=== PATIENT | female | born 1995 | race Caucasian/White ===

== ENCOUNTER 2017-01-30 20:33 | Inpatient (IN) | payer MEDICAID, OTHER ==
[~2017-01-30] VITALS: Ht 152.4 cm; Wt 55.5 kg
[~2017-01-30 20:33] MED LIST: ACET325 PO; CELE10TA9 PO; CEPH500T PO
[2017-01-30 20:34] VITALS: BP 120/70; PULSE 100; RESP 20; TEMP 98; O2SAT 98
[2017-01-30 20:56] VITALS: BP 118/76; PULSE 80; RESP 14; O2SAT 99
[2017-01-30 21:39] LABS: AUTOMATED NEUTROPHIL # 3.2 TH/MM3 (1.8-7.7); BASOPHIL % 0.7 % (0.0-2.0); EOSINOPHIL # 0.2 TH/MM3 (0-0.4); EOSINOPHIL % 2.1 % (0.0-4.0); HEMATOCRIT 38.1 % (35.0-46.0); HEMO FLAGS DIFF FINAL; LYMPH % 47.6 % (9.0-44.0); LYMPHOCYTE # 3.5 TH/MM3 (1.0-4.8); MEAN CELL VOLUME 81.5 FL (80.0-100.0); MEAN CORPUSCULAR HEMOGLOBIN 26.9 PG (27.0-34.0); MEAN CORPUSCULAR HGB CONC 33.1 % (32.0-36.0); NEUT % 43.6 % (16.0-70.0); PLATELET COUNT 292 TH/MM3 (150-450); RED BLOOD COUNT 4.68 MIL/MM3 (4.00-5.30); WHITE BLOOD COUNT 7.4 TH/MM3 (4.0-11.0)
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
[2017-01-30 22:10] LABS: ANION GAP 9 MEQ/L (5-15); BICARBONATE 25.5 MEQ/L (21.0-32.0); BLOOD UREA NITROGEN 19 MG/DL (7-18); CHLORIDE 107 MEQ/L (98-107); GLOMERULAR FILTRATION RATE 84 ML/MIN (>89); POTASSIUM 3.6 MEQ/L (3.5-5.1); SODIUM (NA) 141 MEQ/L (136-145)
[2017-01-30 22:11] LABS: AMPHETAMINE, URINE NEG (NEG); BARBITURATES, URINE NEG (NEG); COCAINE, URINE NEG (NEG)
[2017-01-30 22:13] LABS: ACETAMINOPHEN LESS THAN 2.0 MCG/ML (10.0-30.0); ALKALINE PHOSPHATASE 52 U/L (45-117); ALT (GPT) 21 U/L (9-42); AST (GOT) 17 U/L (16-38); TOTAL BILIRUBIN ADULT 0.3 MG/DL (0.2-1.0)
[2017-01-31 00:51] VITALS: BP 120/74; PULSE 76; RESP 12; O2SAT 98
[2017-01-31] MEDS ORDERED: ACETAMINOPHEN 325 MG TAB PO PRN (01:15)
[2017-01-31] MEDS ORDERED: LORazepam 2 MG/ML VIAL IM PRN (01:15)
[2017-01-31] MEDS ORDERED: BENZTROPINE MESYLATE 2 MG/2 ML VIAL IM PRN (01:15)
[2017-01-31] MEDS ORDERED: BENZTROPINE MESYLATE 1 MG TAB PO PRN (01:15)
[2017-01-31] MEDS ORDERED: LORazepam 1 MG TAB PO PRN (01:15)
[2017-01-31] MEDS ORDERED: ALUMINUM/MAGNESIUM/SIMETH 30 ML CUP PO PRN (01:15)
[2017-01-31] MEDS ORDERED: MAGNESIUM HYDROXIDE SUSP 30 ML CUP PO PRN (01:15)
[2017-01-31 02:15] VITALS: BP 121/57; PULSE 89; RESP 16; TEMP 97.9; O2SAT 100
[2017-01-31] MEDS: REMOVE OLD PATCH T-DERMAL SCH (09:00)
[2017-01-31] MEDS: NICOTINE 21 MG/24 HR PATCH T-DERMAL SCH (09:00)
[2017-01-31] MEDS ORDERED: PILL SPLITTER OTHER PRN (14:15)
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
[2017-01-31 18:01] VITALS: BP 115/59; PULSE 100; RESP 16; TEMP 98.2; O2SAT 100
[2017-01-31] MEDS: diphenhydrAMINE HCL 50 MG CAP PO PRN (21:46)
[2017-02-01 06:33] VITALS: BP 106/53; PULSE 97; RESP 15; TEMP 98.9; O2SAT 100
[2017-02-01] MEDS: NICOTINE 21 MG/24 HR PATCH T-DERMAL SCH (09:00)
[2017-02-01] MEDS: REMOVE OLD PATCH T-DERMAL SCH (09:00)
[2017-02-01] MEDS: CITALOPRAM HYDROBROMIDE 20 MG TAB PO SCH (09:11)
[2017-02-01 09:19] LABS: ANION GAP 8 MEQ/L (5-15); BICARBONATE 25.8 MEQ/L (21.0-32.0); BLOOD UREA NITROGEN 13 MG/DL (7-18); CHLORIDE 105 MEQ/L (98-107); GLOMERULAR FILTRATION RATE 84 ML/MIN (>89); HDL CHOLESTEROL 70.4 MG/DL (40.0-60.0); LDL CHOLESTEROL 105 MG/DL (0-99); POTASSIUM 4.1 MEQ/L (3.5-5.1); SODIUM (NA) 139 MEQ/L (136-145)
[2017-02-01 09:49] LABS: HEMOGLOBIN A1a 1.2 %; HEMOGLOBIN A1b 0.7 %; HEMOGLOBIN Ao 86.1 %; HEMOGLOBIN LA1C 1.8 %; HEMOGLOBIN P3 3.5 %
--- NOTE | 2017-02-01 11:13 | HHI.PYPN ---
Subjective Remarks Patient was seen and case discussed with nursing. Patient is pleasant and cooperative with exam. She is eating well, sleeping well. Seen interacting with others. Affect is shy, anxious. Denies suicidal ideation intent or plan. Objective Alert: Yes [place]: Person, Place, Date, Situation Mood: Anxious, Depressed Affect: Restricted Memory Intact: Immediate (intact) Hallucinations: Auditory (denies) Delusions: No Delusion Type: Other Suicidal: Ideation (denies) Homicidal: Ideation (denies) Insight/Judgment Fair Labs Test 02/01/17 08:05 Sodium Level 139 MEQ/L Potassium Level 4.1 MEQ/L Chloride Level 105 MEQ/L Carbon Dioxide Level 25.8 MEQ/L Anion Gap 8 MEQ/L Blood Urea Nitrogen 13 MG/DL Creatinine 0.87 MG/DL Estimat Glomerular Filtration 84 ML/MIN Rate Random Glucose 84 MG/DL Hemoglobin A1c 5.2 % Calcium Level 8.7 MG/DL Triglycerides Level 54 MG/DL Cholesterol Level 186 MG/DL LDL Cholesterol 105 MG/DL HDL Cholesterol 70.4 MG/DL Cholesterol/HDL Ratio 2.64 RATIO Thyroid Stimulating Hormone 2.930 uIU/ML 3rd Gen Vitals/IOs Vital Signs Date Time Temp Pulse Resp B/P Pulse Ox O2 Delivery O2 Flow Rate FiO2 02/01/17 06:33 98.9 97 15 106/53 100 01/31/17 00:51 Room Air Assessment & Plan Problem List: (1) Major depressive disorder ICD Code: F32.9 Assessment & Plan Continue current treatment plan Justification for Cont. Inpt. Patient will decompensate in a less restrictive setting Request HC Surrog/Guard Advoc?: No Problem Qualifiers (1) Major depressive disorder: Qualified Code: F33.2 - Severe episode of recurrent major depressive disorder, without psychotic features Raphael Stubbs DO February 01, 2017 11:13
[2017-02-01 20:00] VITALS: BP 108/60; PULSE 77; RESP 16; TEMP 97.9; O2SAT 100
[2017-02-01] MEDS: diphenhydrAMINE HCL 50 MG CAP PO PRN (21:37)
[2017-02-01] MEDS: ALPRAZolam 0.25 MG TAB PO PRN (21:55)
[2017-02-02 06:13] VITALS: BP 96/55; PULSE 75; RESP 16; TEMP 97.6
[2017-02-02] MEDS: REMOVE OLD PATCH T-DERMAL SCH (09:00)
[2017-02-02] MEDS: NICOTINE 21 MG/24 HR PATCH T-DERMAL SCH (09:00)
[2017-02-02] MEDS: CITALOPRAM HYDROBROMIDE 20 MG TAB PO SCH (09:20)
--- NOTE | 2017-02-02 16:45 | HHI.PYPN ---
Subjective Remarks Patient remains depressed. She is tolerating the Celexa but wants it changed to nighttime because it makes her tired. Review of Systems Except as stated in HPI: all other systems reviewed are Neg Objective Alert: Yes [place]: Person, Place, Date, Situation Mood: Anxious, Depressed Affect: Restricted Memory Intact: Immediate (intact) Hallucinations: Auditory (denies) Delusions: No Delusion Type: Other Suicidal: Ideation (denies) Homicidal: Ideation (denies) Insight/Judgment Impaired Vitals/IOs Vital Signs Date Time Temp Pulse Resp B/P Pulse Ox O2 Delivery O2 Flow Rate FiO2 02/02/17 06:13 97.6 75 16 96/55 02/01/17 20:00 100 01/31/17 00:51 Room Air Assessment & Plan Problem List: (1) Major depressive disorder ICD Code: F32.9 Assessment & Plan Estimated LOS: 3 days continue Celexa for now. Justification for Cont. Inpt. Suicidal ideation. Request HC Surrog/Guard Advoc?: No Problem Qualifiers (1) Major depressive disorder: Qualified Code: F33.2 - Severe episode of recurrent major depressive disorder, without psychotic features Mikael Hutchins MD February 02, 2017 16:45
[2017-02-02 18:00] VITALS: BP 116/60; PULSE 88; RESP 18; TEMP 97.8; O2SAT 99
[2017-02-02] MEDS: ALPRAZolam 0.25 MG TAB PO PRN (21:44)
[2017-02-02] MEDS: diphenhydrAMINE HCL 50 MG CAP PO PRN (21:44)
[2017-02-03 04:40] VITALS: PULSE 77; RESP 18; TEMP 98.3; O2SAT 98
[2017-02-03] MEDS: REMOVE OLD PATCH T-DERMAL SCH (09:00)
[2017-02-03] MEDS: NICOTINE 21 MG/24 HR PATCH T-DERMAL SCH (09:00)
[2017-02-03] MEDS: ALPRAZolam 0.25 MG TAB PO PRN (17:22)
[2017-02-03 18:05] VITALS: BP 102/58; PULSE 82; RESP 18; TEMP 97.6
[2017-02-03] MEDS ORDERED: CITALOPRAM HYDROBROMIDE 20 MG TAB PO SCH (21:00)
[2017-02-03] MEDS: diphenhydrAMINE HCL 50 MG CAP PO PRN (22:46)
[2017-02-04 06:02] VITALS: BP 101/55; PULSE 85; RESP 15; TEMP 98
[2017-02-04] MEDS: NICOTINE 21 MG/24 HR PATCH T-DERMAL SCH (09:00)
[2017-02-04] MEDS: REMOVE OLD PATCH T-DERMAL SCH (09:00)
[2017-02-04 17:33] VITALS: BP 116/66; PULSE 86; RESP 15; TEMP 98.4; O2SAT 98
[2017-02-04] MEDS: CITALOPRAM HYDROBROMIDE 20 MG TAB PO SCH (21:02)
[2017-02-04] MEDS: diphenhydrAMINE HCL 50 MG CAP PO PRN (21:02)
[2017-02-05 05:35] VITALS: BP 104/65; PULSE 80; RESP 18; TEMP 98.4; O2SAT 99
[2017-02-05] MEDS: NICOTINE 21 MG/24 HR PATCH T-DERMAL SCH (09:00)
[2017-02-05] MEDS: REMOVE OLD PATCH T-DERMAL SCH (09:00)
[2017-02-05 20:11] VITALS: BP 112/72; PULSE 97; RESP 18; TEMP 98.7; O2SAT 97
[2017-02-05] MEDS: diphenhydrAMINE HCL 50 MG CAP PO PRN (21:20)
[2017-02-05] MEDS: CITALOPRAM HYDROBROMIDE 20 MG TAB PO SCH (21:20)
[2017-02-06 06:09] VITALS: BP 101/54; PULSE 76; RESP 18; TEMP 98.9; O2SAT 100
[2017-02-06] MEDS: NICOTINE 21 MG/24 HR PATCH T-DERMAL SCH (09:00)
[2017-02-06] MEDS: REMOVE OLD PATCH T-DERMAL SCH (09:00)
[2017-02-06] MEDS ORDERED: CELE20TA PO (14:11)
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
--- NOTE | 2017-02-12 12:29 | HHI.PYPN ---
Subjective Remarks Patient's mood is improved. She is tolerating antidepressant medication well. She is considering discharge tomorrow and will plan to return to her boyfriend, with whom she lives. Review of Systems Except as stated in HPI: all other systems reviewed are Neg Objective Alert: Yes [place]: Person, Place, Date, Situation Mood: Anxious, Depressed Affect: Restricted Memory Intact: Immediate (intact) Hallucinations: Auditory (denies) Delusions: No Delusion Type: Other Suicidal: Ideation (denies) Homicidal: Ideation (denies) Insight/Judgment Improved Assessment & Plan Problem List: (1) Major depressive disorder ICD Code: F32.9 Assessment & Plan Estimated LOS: 1 days. Patient demonstrates stability of mood, she will be discharged tomorrow. Justification for Cont. Inpt. Requires time to evaluate stability of mood. Request HC Surrog/Guard Advoc?: No Problem Qualifiers (1) Major depressive disorder: Qualified Code: F33.2 - Severe episode of recurrent major depressive disorder, without psychotic features Mikael Hutchins MD February 12, 2017 12:28
--- NOTE | 2017-02-12 12:32 | HHI.PYPN ---
Subjective Remarks This is the progress note for February 04, 2017. Patient is tolerating antidepressant. Remains depressed, tearful, with suicidal thinking. Able to plan overdose without hesitation. Review of Systems Except as stated in HPI: all other systems reviewed are Neg Objective Alert: Yes [place]: Person, Place, Date, Situation Mood: Anxious, Depressed Affect: Restricted Memory Intact: Immediate (intact) Hallucinations: Auditory (denies) Delusions: No Delusion Type: Other Suicidal: Ideation (denies) Homicidal: Ideation (denies) Insight/Judgment Remains impaired. Assessment & Plan Problem List: (1) Major depressive disorder ICD Code: F32.9 Assessment & Plan Estimated LOS: 3 days remains depressed and suicidal. Tolerates antidepressant medication but needs more time to respond. Justification for Cont. Inpt. Likely to harm self at lower level of care. Request HC Surrog/Guard Advoc?: No Problem Qualifiers (1) Major depressive disorder: Qualified Code: F33.2 - Severe episode of recurrent major depressive disorder, without psychotic features Mikael Hutchins MD February 12, 2017 12:32
--- NOTE | 2017-02-12 12:38 | HHI.PYPN ---
Subjective Remarks This is the progress note for February 03, 2017. Markedly depressed mood. Describes social withdrawal, anhedonia and anxiety. Also reports diminished energy and frequent tearfulness with suicidal thinking. Antidepressant therapy has not been effective thus far. Review of Systems Except as stated in HPI: all other systems reviewed are Neg Objective Alert: Yes [place]: Person, Place, Date, Situation Mood: Anxious, Depressed Affect: Restricted Memory Intact: Immediate (intact) Hallucinations: Auditory (denies) Delusions: No Delusion Type: Other Suicidal: Ideation (denies) Homicidal: Ideation (denies) Insight/Judgment Impaired Assessment & Plan Problem List: (1) Major depressive disorder ICD Code: F32.9 Assessment & Plan Estimated LOS: 5 days discussed change of antidepressant medication to Wellbutrin XL, 150 mg to 300 mg per day. Justification for Cont. Inpt. Continued suicidal ideation with plan to overdose. Antidepressant medication ineffective thus far. Request HC Surrog/Guard Advoc?: No Problem Qualifiers (1) Major depressive disorder: Qualified Code: F33.2 - Severe episode of recurrent major depressive disorder, without psychotic features Mikael Hutchins MD February 12, 2017 12:38
== END 2017-02-06 17:30 | disposition home or self-care (01) | DRG 885 ==
LOC: NEPD 20:33 → NEDA 01-31 01:23 → H260 01-31 02:15
PROVIDERS: ADMIT Psychiatry & Neurology Psychiatry; ATTEND Psychiatry & Neurology Psychiatry
DX: F33.2 Major depressive disorder, recurrent severe without psychotic features (principal); R45.851 Suicidal ideations; F41.9 Anxiety disorder, unspecified; G47.00 Insomnia, unspecified; Z91.5 Personal history of self-harm; Z81.8 Family history of other mental and behavioral disorders; Z62.810 Personal history of physical and sexual abuse in childhood
CPT/HCPCS: 80048; 80053; 80061; 80307; 83036; 84443; 84703; 85025; 99284; Q0163

== ENCOUNTER 2017-03-10 19:30 | Emergency (ER) | payer MEDICAID ==
[~2017-03-10] VITALS: Ht 165.1 cm; Wt 55.0 kg
[~2017-03-10 19:30] MED LIST changes: -ACET325 PO; -CELE10TA9 PO; +CELE20TA PO; -CEPH500T PO
[2017-03-10 19:32] VITALS: BP 132/68; PULSE 132; RESP 16; TEMP 99.7; O2SAT 99
[2017-03-10] MEDS ORDERED: SODIUM CHLOR 0.9% 1000 ML INJ 1,000 ML IV ONE (22:07)
--- NOTE | 2017-03-10 22:12 | PD ---
HPI Chief Complaint: Cold / Flu Symptoms Time Seen by Provider: 22:08 Travel History International Travel<30 days: No Contact w/Intl Traveler<30days: No Traveled to known affect area: No History of Present Illness HPI Patient is a 21-year-old female presenting with 1 week of right flank pain, headache, nausea, dysuria and frequency. She reports having cold sweats and then feeling as if she is hot. She has no documented fevers at home. She reports the pain is a 9 out of 10, and the pain is worse in the right flank when she lays on her left side. Patient reports a history of urinary tract infections. She last took Excedrin at 7 PM this evening for headache. The headache is frontal in nature and aching and throbbing per her report. Her past medical history significant for anxiety and depression. She has no known drug allergies. PFSH Past Medical History Weight (Kg): 3 Anxiety: Yes Depression: Yes Cancer: No Cardiovascular Problems: No Diabetes: No Diminished Hearing: No Endocrine: No Genitourinary: No Headaches: Yes (at times from too much sun) Immune Disorder: No Musculoskeletal: No Neurologic: No Psychiatric: Yes (Suicidal Ideations) Reproductive: No Respiratory: No Immunizations Current: Yes Seizures: No Tetanus Vaccination: Unknown Influenza Vaccination: No ?: Not Past Surgical History Oral Surgery: Yes (wisdom teeth removed) Social History Alcohol Use: Yes (rare) Tobacco Use: No Substance Use: No Allergies-Medications (Allergen,Severity, Reaction): Coded Allergies: No Known Allergies (Unverified , 01/30/17) Reported Meds & Prescriptions Reported Meds & Active Scripts Active Ibuprofen 800 Mg Tab 800 Mg PO Q6HR PRN Phenergan (Promethazine HCl) 25 Mg Tablet 25 Mg PO Q8HR PRN Ciprofloxacin (Ciprofloxacin HCl) 500 Mg Tab 500 Mg PO BID 7 Days Celexa (Citalopram Hydrobromide) 20 Mg Tab 20 Mg PO HS 15 Days Review of Systems Except as stated in HPI: all other systems reviewed are Neg General / Constitutional: Positive: Chills HENT: Positive: Headaches Cardiovascular: Positive: Tachycardia, No: Chest Pain or Discomfort Respiratory: No: Cough, Shortness of Breath Gastrointestinal: Positive: Nausea, No: Vomiting, Diarrhea Genitourinary: Positive: Urgency, Frequency, Dysuria, Flank Pain Musculoskeletal: No: Myalgias Neurologic: No: Weakness, Dizziness, Syncope Physical Exam Narrative GENERAL: Well-developed, well-nourished, alert female. Resting comfortably in no acute distress. SKIN: Focused skin assessment warm/dry. HEAD: Atraumatic. Normocephalic. EYES: Pupils equal and round. No scleral icterus. No injection or drainage. ENT: No nasal bleeding or discharge. Mucous membranes pink and moist. NECK: Trachea midline. No JVD. CARDIOVASCULAR: Tachycardic. No murmur appreciated. RESPIRATORY: No accessory muscle use. Clear to auscultation. Breath sounds equal bilaterally. GASTROINTESTINAL: Abdomen soft, non-tender, nondistended. Hepatic and splenic margins not palpable. + Bowel sounds. MUSCULOSKELETAL: No obvious deformities. No clubbing. No cyanosis. No edema. Positive CVAT on the right NEUROLOGICAL: Awake and alert. No obvious cranial nerve deficits. Motor grossly within normal limits. Normal speech. PSYCHIATRIC: Appropriate mood and affect; insight and judgment normal. Data Data Last Documented VS Vital Signs Date Time Temp Pulse Resp B/P Pulse Ox O2 Delivery O2 Flow Rate FiO2 03/10/17 22:32 83 03/10/17 19:32 99.7 16 132/68 99 Room Air Orders Complete Blood Count With Diff (03/10/17 22:07) Comprehensive Metabolic Panel (03/10/17 22:07) Urinalysis - C+S If Indicated (03/10/17 22:07) Ecg Monitoring (03/10/17 22:07) Iv Access Insert/Monitor (03/10/17 22:07) Ketorolac Inj (Toradol Inj) (03/10/17 22:15) Ondansetron Inj (Zofran Inj) (03/10/17 22:15) Sodium Chloride 0.9% Flush (Ns Flush) (03/10/17 22:15) Sodium Chlor 0.9% 1000 Ml Inj (Ns 1000 M (03/10/17 22:07) Lactic Acid (03/10/17 22:07) Urine Culture (03/10/17 22:00) Potassium Chloride (Kcl) (03/10/17 23:00) Ceftriaxone Inj (Rocephin Inj) (03/10/17 23:00) Labs Laboratory Tests Test 03/10/17 22:00 White Blood Count 11.5 TH/MM3 Red Blood Count 4.23 MIL/MM3 Hemoglobin 10.9 GM/DL Hematocrit 34.3 % Mean Corpuscular Volume 81.3 FL Mean Corpuscular Hemoglobin 25.9 PG Mean Corpuscular Hemoglobin 31.9 % Concent Red Cell Distribution Width 13.1 % Platelet Count 328 TH/MM3 Mean Platelet Volume 8.2 FL Neutrophils (%) (Auto) 79.7 % Lymphocytes (%) (Auto) 11.5 % Monocytes (%) (Auto) 8.2 % Eosinophils (%) (Auto) 0.3 % Basophils (%) (Auto) 0.3 % Neutrophils # (Auto) 9.1 TH/MM3 Lymphocytes # (Auto) 1.3 TH/MM3 Monocytes # (Auto) 0.9 TH/MM3 Eosinophils # (Auto) 0.0 TH/MM3 Basophils # (Auto) 0.0 TH/MM3 CBC Comment DIFF FINAL Differential Comment Urine Color LIGHT-YELLOW Urine Turbidity HAZY Urine pH 5.5 Urine Specific [place] 1.007 Urine Protein NEG mg/dL Urine Glucose (UA) NEG mg/dL Urine Ketones NEG mg/dL Urine Occult Blood NEG Urine Nitrite NEG Urine Bilirubin NEG Urine Urobilinogen LESS THAN 2.0 MG/DL Urine Leukocyte Esterase LARGE Urine RBC 5 /hpf Urine WBC 16 /hpf Urine Squamous Epithelial 4 /hpf Cells Urine Amorphous Sediment RARE Urine Bacteria RARE /hpf Urine Mucus FEW /lpf Microscopic Urinalysis Comment CULTURE INDICATED Sodium Level 137 MEQ/L Potassium Level 3.0 MEQ/L Chloride Level 103 MEQ/L Carbon Dioxide Level 22.8 MEQ/L Anion Gap 11 MEQ/L Blood Urea Nitrogen 11 MG/DL Creatinine 0.67 MG/DL Estimat Glomerular Filtration 113 ML/MIN Rate Random Glucose 120 MG/DL Lactic Acid Level 0.8 mmol/L Calcium Level 8.8 MG/DL Total Bilirubin 0.3 MG/DL Aspartate Amino Transf 12 U/L (AST/SGOT) Alanine Aminotransferase 19 U/L (ALT/SGPT) Alkaline Phosphatase 48 U/L Total Protein 7.5 GM/DL Albumin 3.3 GM/DL [facility] Medical Decision Making Medical Screen Exam Complete: Yes Emergency Medical Condition: Yes Interpretation(s) Laboratory Tests Test 03/10/17 22:00 White Blood Count 11.5 TH/MM3 Red Blood Count 4.23 MIL/MM3 Hemoglobin 10.9 GM/DL Hematocrit 34.3 % Mean Corpuscular Volume 81.3 FL Mean Corpuscular Hemoglobin 25.9 PG Mean Corpuscular Hemoglobin 31.9 % Concent Red Cell Distribution Width 13.1 % Platelet Count 328 TH/MM3 Mean Platelet Volume 8.2 FL Neutrophils (%) (Auto) 79.7 % Lymphocytes (%) (Auto) 11.5 % Monocytes (%) (Auto) 8.2 % Eosinophils (%) (Auto) 0.3 % Basophils (%) (Auto) 0.3 % Neutrophils # (Auto) 9.1 TH/MM3 Lymphocytes # (Auto) 1.3 TH/MM3 Monocytes # (Auto) 0.9 TH/MM3 Eosinophils # (Auto) 0.0 TH/MM3 Basophils # (Auto) 0.0 TH/MM3 CBC Comment DIFF FINAL Differential Comment Urine Color LIGHT-YELLOW Urine Turbidity HAZY Urine pH 5.5 Urine Specific [place] 1.007 Urine Protein NEG mg/dL Urine Glucose (UA) NEG mg/dL Urine Ketones NEG mg/dL Urine Occult Blood NEG Urine Nitrite NEG Urine Bilirubin NEG Urine Urobilinogen LESS THAN 2.0 MG/DL Urine Leukocyte Esterase LARGE Urine RBC 5 /hpf Urine WBC 16 /hpf Urine Squamous Epithelial 4 /hpf Cells Urine Amorphous Sediment RARE Urine Bacteria RARE /hpf Urine Mucus FEW /lpf Microscopic Urinalysis Comment CULTURE INDICATED Sodium Level 137 MEQ/L Potassium Level 3.0 MEQ/L Chloride Level 103 MEQ/L Carbon Dioxide Level 22.8 MEQ/L Anion Gap 11 MEQ/L Blood Urea Nitrogen 11 MG/DL Creatinine 0.67 MG/DL Estimat Glomerular Filtration 113 ML/MIN Rate Random Glucose 120 MG/DL Lactic Acid Level 0.8 mmol/L Calcium Level 8.8 MG/DL Total Bilirubin 0.3 MG/DL Aspartate Amino Transf 12 U/L (AST/SGOT) Alanine Aminotransferase 19 U/L (ALT/SGPT) Alkaline Phosphatase 48 U/L Total Protein 7.5 GM/DL Albumin 3.3 GM/DL Vital Signs Date Time Temp Pulse Resp B/P Pulse Ox O2 Delivery O2 Flow Rate FiO2 03/10/17 19:32 99.7 132 16 132/68 99 Room Air Differential Diagnosis UTI versus pyelonephritis versus viral syndrome versus kidney stone versus other Narrative Course Patient is a 21-year-old female presenting with 1 week of urinary and flulike symptoms. Labs ordered and pending. Significant other at bedside. CBC with a slight elevation of 11.5 with left shift Lactic acid is 0.8 Chemistry with potassium of 3.0 Urine with elevated red and white blood cells, large leukocyte esterase, reflux culture pending. Patient given Rocephin 2 g IV 1 dose in addition to a liter of normal saline. Her vital signs are reassessed, her heart rate has normalized. Patient will be discharged home with antibiotics, nausea medicine, anti- inflammatory medication. She was given strict return precautions. She was encouraged to maintain/increased fluid intake. Was encouraged to follow-up with her primary doctor. Patient verbalized understanding of discharge instructions. Patient is stable for discharge. Diagnosis Primary Impression: UTI (urinary tract infection) Qualified Code: N39.0 - Urinary tract infection with hematuria, site unspecified Additional Impression: Hypokalemia Referrals: Primary Care Physician 2 days Patient Instructions: General Instructions, Hypokalemia (ED), Urinary Tract Infection in Women (ED) Additional Instructions: Follow-up with your primary doctor Complete full course of antibiotics as prescribed Increased fluid intake Return to emergency department for any new or worsening symptoms Med/Other Pt SpecificInfo: Prescription(s) given Scripts Ibuprofen 800 Mg [id number] Mg PO Q6HR PRN (PAIN) #40 TAB Ref 0 Prov:Regine Nascimento 03/10/17 Promethazine (Phenergan)25 Mg [id number] Mg PO Q8HR PRN (NAUSEA OR VOMITING) #6 TAB Ref 0 Prov:Regine Nascimento 03/10/17 Ciprofloxacin 500 Mg [id number] Mg PO BID 7 Days Ref 0 Prov:Regine Nascimento 03/10/17 Disposition: 01 DISCHARGE HOME Condition: Stable Regine Nascimento Mar 10, 2017 22:11
[2017-03-10] MEDS ORDERED: ONDANSETRON HCL 4 MG/2 ML VIAL IVP ONE (22:15)
[2017-03-10] MEDS ORDERED: SODIUM CHLORIDE 0.9% FLUSH 10 ML FLUSH IVF PRN (22:15)
[2017-03-10] MEDS ORDERED: KETOROLAC TROMETHAMINE 30 MG/ML (IVP) VIAL IVP ONE (22:15)
[2017-03-10 22:32] VITALS: PULSE 83; PULSE 90
[2017-03-10 22:36] LABS: AUTOMATED NEUTROPHIL # 9.1 TH/MM3 (1.8-7.7); BASOPHIL % 0.3 % (0.0-2.0); EOSINOPHIL % 0.3 % (0.0-4.0); HEMATOCRIT 34.3 % (35.0-46.0); HEMO FLAGS DIFF FINAL; LYMPH % 11.5 % (9.0-44.0); LYMPHOCYTE # 1.3 TH/MM3 (1.0-4.8); MEAN CELL VOLUME 81.3 FL (80.0-100.0); MEAN CORPUSCULAR HEMOGLOBIN 25.9 PG (27.0-34.0); MEAN CORPUSCULAR HGB CONC 31.9 % (32.0-36.0); MONO % 8.2 % (0.0-8.0); NEUT % 79.7 % (16.0-70.0); PLATELET COUNT 328 TH/MM3 (150-450); RED BLOOD COUNT 4.23 MIL/MM3 (4.00-5.30); RED CELL DISTRIBUTION WIDTH 13.1 % (11.6-17.2); WHITE BLOOD COUNT 11.5 TH/MM3 (4.0-11.0)
[2017-03-10 22:45] LABS: BACTERIA, URINE RARE /hpf; BLOOD, URINE NEG (NEG); GLUCOSE,URINE NEG (NEG); KETONE, URINE NEG (NEG); MUCUS URINE FEW /lpf (OCC); NITRITE,URINE NEG (NEG); PH, URINE 5.5 (5.0-8.5); SQUAMOUS EPITHELIAL CELL URINE 4 /hpf (0-5); URINE COLOR LIGHT-YELLOW (YELLW/STRAW)
[2017-03-10 22:47] LABS: COMMENT (UR) CULTURE INDICATED; CULTURE IF INDICATED CULTURE INDICATED
[2017-03-10 22:57] LABS: ANION GAP 11 MEQ/L (5-15); AST (GOT) 12 U/L (16-38); BICARBONATE 22.8 MEQ/L (21.0-32.0); BLOOD UREA NITROGEN 11 MG/DL (7-18); CHLORIDE 103 MEQ/L (98-107); GLOMERULAR FILTRATION RATE 113 ML/MIN (>89); SODIUM (NA) 137 MEQ/L (136-145)
[2017-03-10] MEDS ORDERED: POTASSIUM CHLORIDE 20 MEQ CONTROLLED RELEASE TAB PO ONE (23:00)
[2017-03-10] MEDS ORDERED: cefTRIAXone INJ 2,000 MG in SODIUM CHLORIDE 0.9% INJ 100 ML IV ONE (23:00)
[2017-03-10 23:02] LABS: ALKALINE PHOSPHATASE 48 U/L (45-117); ALT (GPT) 19 U/L (9-42); TOTAL BILIRUBIN ADULT 0.3 MG/DL (0.2-1.0)
[2017-03-10] MEDS ORDERED: PROM25TA10 PO (23:42)
[2017-03-10] MEDS ORDERED: CIPR500T2 PO (23:42)
[2017-03-10] MEDS ORDERED: IBUP800T23 PO (23:43)
[2017-03-11 00:35] VITALS: BP 125/76
== END 2017-03-11 00:42 | disposition home or self-care (01) ==
LOC: NEPD 19:30
DX: N39.0 Urinary tract infection, site not specified (principal); R31.9 Hematuria, unspecified; E87.6 Hypokalemia; B96.20 Unspecified Escherichia coli [E. coli] as the cause of diseases classified elsewhere; B95.1 Streptococcus, group B, as the cause of diseases classified elsewhere; R51 Headache; R11.0 Nausea
CPT/HCPCS: 80053; 81001; 83605; 85025; 86403; 87077; 87086; 87186; 96374; 96375; 99284; J0696; J1885; J2405; J7030